=== PATIENT | male | born 1970 | race Caucasian/White ===

== ENCOUNTER 2023-08-22 13:46 | Observation (INO) ==
[~2023-08-22 13:46] MED LIST: Patient's HEIGHT &/or WEIGHT Needed STA
--- NOTE | 2023-08-22 13:53 | ED Triage Note ---
Date of Service August 22, 2023 Provider in Triage Author: Tejal Steele History of Present Illness This patient was briefly evaluated while in triage. An abbreviated physical exam was performed. This patient is a 53-year-old Male who presents to the ED for evaluation of chest pain, feeling shaky and weak. Took 2 baby aspirin today. Had a heart attack a year ago and got one stent. Takes plavix also. Chest pain started at about 11:30 am while exerting himself helping someone move. Pain lasted about one hour and relieved with aspirin. Did not take nitro. States this feels similar to when he had his last heart attack. Physical Exam CONSTITUTIONAL: No acute distress. Well appearing. RESPIRATORY: Clear to auscultation bilaterally. Equal expansion bilaterally. CARDIOVASCULAR: Regular rate and rhythm with no murmurs, rubs or gallops. Normal peripheral perfusion. No peripheral edema. GASTROINTESTINAL: Soft, nontender. NEUROLOGIC: Alert and oriented X 4 with normal affect. EKG reviewed in protocols room, no STEMI at this time and he currently denies chest pain. Initial orders for labs and / or imaging were placed and patient was taken directly to a room. Please see further documentation for the full ED course.
[2023-08-22] MEDS: ASPIRIN CHEW 324 MG PO STA (14:12)
[2023-08-22 14:25] LABS: Basophils # (auto) 0.03 K/uL (0.00-0.20); Basophils % (auto) 0.3 %; Eosinophils # (auto) 0.11 K/uL (0.00-0.50); Eosinophils % (auto) 1.3 %; Hemoglobin 15.3 g/dl (14.0-18.0); Immature Granulocytes # (auto) 0.02 K/uL (0.01-0.20); Immature Granulocytes % (auto) 0.2 %; Lymphocytes # (auto) 1.73 K/uL (1.20-3.40); Lymphocytes % (auto) 19.7 %; Mean Corpuscular Hemoglobin 30.4 pg (25.0-34.0); Mean Corpuscular Volume 89.3 fL (80.0-100.0); Mean Platelet Volume 10.5 fL (9.4-12.4); Monocytes # (auto) 0.65 K/uL (0.11-0.59); Monocytes % (auto) 7.4 %; Neutrophils # (auto) 6.22 K/uL (1.40-6.50); Neutrophils % (auto) 71.1 %; Platelet Count 215 K/uL (130-400); RDW Coefficient of Variation 12.5 % (11.5-14.5); RDW Standard Deviation 41.1 fL (36.4-46.3); Red Blood Count 5.04 M/uL (4.70-6.10); White Blood Count 8.76 K/ul (4.8-10.8)
--- NOTE | 2023-08-22 14:29 | Emergency Department Note ---
History of Present Illness General Chief Complaint: Cardiac Assessment Stated Complaint: WEAK, CARDIAC ASS, PREVIOUS HEART ATTACK Time Seen by Provider: 08/22/23 14:09 History of Present Illness Provider Complaint: chest pain Time: 11:30 Duration: intermittent, improved and now resolved Onset: during exertion (While moving) Pain Location: substernal Pain Radiation: RUE and LUE Quality: + tightness, + aching, + sharp and + dull Relieved By: + rest Exacerbated By: + exertion Context: no recent illness, no recent surgery, no recent travel, no trauma/injury, no new medications or no history of DVT/PE Associated symptoms: + dyspnea; no nausea, no vomiting, no diaphoresis, no syncope, no palpitations, no fever, no cough or no leg swelling Allergies Allergy/AdvReac Type Severity Reaction Status Date / Time No Known Allergies Allergy Unverified 08/22/23 13:50 Past Med/Surg History Problem List (Updated 08/22/23 @ 16:36 by Porfirio Connolly MD) Chest pain (Acute) Medical History (Updated 08/22/23 @ 16:36 by Porfirio Connolly MD) CAD (coronary artery disease) Social History Smoking Status: Unknown if ever smoked Preferred Language: Ugandan Feels Safe at Home: Yes Physical Exam Vital Signs Vital Signs - 24 hr 08/22/23 13:50 08/22/23 14:21 08/22/23 14:30 Temperature 36.4 C L Temperature Source Temporal Artery Scan Pulse Rate 65 67 57 L Pulse Rate from SpO2 Sensor 59 L Pulse Rhythm Regular Pulse Strength Normal Respiratory Rate 18 18 Respiratory Effort / Characteristics Non-Labored Spontaneous Respiratory Depth Normal Respiratory Pattern Regular Blood Pressure 132/87 Blood Pressure Mean 102 Blood Pressure Position Sitting Pulse Oximetry 100 98 Oxygen Delivery Method Room Air Sepsis Recent Fever Within 48 Hours No Sepsis New/Unexplained Change in Mental Status No Sepsis Action Taken by Nursing No Action Required 08/22/23 15:00 Temperature Temperature Source Pulse Rate 61 Pulse Rate from SpO2 Sensor 62 Pulse Rhythm Pulse Strength Respiratory Rate 23 Respiratory Effort / Characteristics Respiratory Depth Respiratory Pattern Blood Pressure Blood Pressure Mean Blood Pressure Position Pulse Oximetry 98 Oxygen Delivery Method Sepsis Recent Fever Within 48 Hours Sepsis New/Unexplained Change in Mental Status Sepsis Action Taken by Nursing Physical Exam GENERAL: oriented to person, place, and time. appears well-developed and well- nourished. HENT: Exam performed. - Head: Normocephalic and atraumatic. EYES: Conjunctivae and EOM are normal. Right eye exhibits no discharge. Left eye exhibits no discharge. No scleral icterus. NECK: Normal range of motion. Neck supple. No JVD present. CV: Normal rate, regular rhythm, normal heart sounds and intact distal pulses. There is no peripheral edema. Palpable radial pulses bue. PULM/CHEST: Effort normal and breath sounds normal. No respiratory distress. No stridor. no wheezes. no rales. ABD: The abdomen is soft. There is no tenderness. NEURO: Motor and sensation grossly intact. SKIN: Skin is warm and dry. He is not diaphoretic. PSYCH: normal mood and affect. Behavior is normal. Judgment and thought content normal. Course Course 1409: The patient was evaluated in room C11. A complete history and physical exam was performed Cardiac monitoring: An order was placed for continuous cardiac monitoring. The monitor shows a rate of 60 with sinus rhythm interpreted by me 1636: Vital signs stable. Labs and imaging within normal limits including negative EKG chest x-ray D-dimer and troponin. Patient was offered inpatient observation versus delta troponin and if negative follow-up. After discussion with his , the patient and elected for inpatient observation for chest pain rule out ACS. [facility]. Administered Medications Discontinued Medications Aspirin (Aspirin Chew 324 Mg) 162 mg PO NOW STA Stop: 08/22/23 13:56 Last Admin: 08/22/23 14:12 Dose: 162 mg Documented By: OAC Medical Decision Making Laboratory Data Attestation: I reviewed the patient's lab results. 08/22/23 14:00 08/22/23 14:00 Labs: Lab Results 08/22/23 Range/Units 14:00 WBC 8.76 (4.8-10.8) K/ul RBC 5.04 (4.70-6.10) M/uL Hgb 15.3 (14.0-18.0) g/dl Hct 45.0 (42.0-52.0) % MCV 89.3 (80.0-100.0) fL MCH 30.4 (25.0-34.0) pg MCHC 34.0 (32.0-36.0) g/dL RDW Std Deviation 41.1 (36.4-46.3) fL RDW Coeff of Elizabet 12.5 (11.5-14.5) % Plt Count 215 (130-400) K/uL MPV 10.5 (9.4-12.4) fL Immature Gran % (Auto) 0.2 % Neut % (Auto) 71.1 % Lymph % (Auto) 19.7 % Eddy % (Auto) 7.4 % Eos % (Auto) 1.3 % Baso % (Auto) 0.3 % Neut # (Auto) 6.22 (1.40-6.50) K/uL Lymph # (Auto) 1.73 (1.20-3.40) K/uL Eddy # (Auto) 0.65 H (0.11-0.59) K/uL Eos # (Auto) 0.11 (0.00-0.50) K/uL Baso # (Auto) 0.03 (0.00-0.20) K/uL Immature Gran # (Auto) 0.02 (0.01-0.20) K/uL PT 10.8 (9.0-12.0) Seconds INR 1.0 (0.9-1.1) APTT 27 (21-31) Seconds PTT Ratio 1.0 D-Dimer < 190 (0-500) ug/L FEU Sodium 130 L (136-145) mmol/L Potassium 4.0 (3.5-5.1) mmol/L Chloride 98 (98-107) mmol/L Carbon Dioxide 26 (21-32) mmol/L Anion Gap 6 (3-11) BUN 18 (6-23) mg/dl Creatinine 1.04 (0.6-1.4) mg/dl Est Cr Clr Drug Dosing Not Reportable Est GFR ( Amer) 95.2 ml/min Est GFR (Non-Af Amer) 82.2 ml/min BUN/Creatinine Ratio 17.3 (10-20) Glucose 95 (70-99(Fasting)) mg/dl Calcium 8.9 (8.6-10.3) mg/dl Total Bilirubin 0.7 (0.2-1.0) mg/dl AST 18 (13-39) U/L ALT 22 (7-52) U/L Alkaline Phosphatase 71 (34-104) U/L Troponin I High Sens 3.7 (0-20) pg/ml Total Protein 7.3 (6.0-8.3) gm/dl Albumin 4.5 (3.4-5.0) gm/dl Globulin 2.8 (2.5-4.0) gm/dl Albumin/Globulin Ratio 1.6 (0.9-2) Lipase 100 H (11-82) U/L Imaging Data Chest x-ray: Attestation: I personally reviewed and interpreted this imaging study as follows: My impression: Chest x-ray negative. Airway clear. No pneumothorax. No consolidation. No cardiomegaly or cephalization.. No free air under the diaphragm. No fractures of the skeletal structures. ECG Data Attestation: I personally reviewed and interpreted this ECG as follows: Indication: chest pain Rate (beats per minute): 60 Rhythm: normal sinus Findings: no ST depression, no ST elevation or no prolonged QT MDM Narrative 1409: The patient was evaluated in room C11. A complete history and physical exam was performed Cardiac monitoring: An order was placed for continuous cardiac monitoring. The monitor shows a rate of 60 with sinus rhythm interpreted by me 1636: Vital signs stable. Labs and imaging within normal limits including negative EKG chest x-ray D-dimer and troponin. Patient was offered inpatient observation versus delta troponin and if negative follow-up. After discussion with his , the patient and elected for inpatient observation for chest pain rule out ACS. Patient will be admitted to the [facility] hospitalist team. Impression & Plan Chest pain Discharge Plan Visit Data Chief Complaint: Cardiac Assessment Stated Complaint: WEAK, CARDIAC ASS, PREVIOUS HEART ATTACK ED Provider: Porfirio Connolly Discharge Problem: Chest pain Patient Disposition: Being Evaluated by Hospitalist Forms Stand Alone Forms: [facility] Referrals Referrals: PCP,NO [Primary Care Provider] - Discharge Problem: Chest pain Qualifiers: Chest pain type: unspecified Qualified Code(s): R07.9 - Chest pain, unspecified
[2023-08-22 14:37] LABS: Alanine Aminotransferase 22 U/L (7-52); Albumin Globulin Ratio 1.6 (0.9-2); Albumin Level 4.5 gm/dl (3.4-5.0); Alkaline Phosphatase 71 U/L (34-104); Anion Gap 6 (3-11); Aspartate Aminotransferase 18 U/L (13-39); BUN Creatinine Ratio 17.3 (10-20); Bilirubin,Total 0.7 mg/dl (0.2-1.0); Blood Urea Nitrogen 18 mg/dl (6-23); Calcium 8.9 mg/dl (8.6-10.3); Carbon Dioxide 26 mmol/L (21-32); Chloride 98 mmol/L (98-107); Est GFR (African American) 95.2 ml/min; Est GFR (Non-African American) 82.2 ml/min; Globulin 2.8 gm/dl (2.5-4.0); Glucose 95 mg/dl (70-99(Fasting)); Lipase 100 U/L (11-82); Sodium 130 mmol/L (136-145); Total Protein 7.3 gm/dl (6.0-8.3)
--- NOTE | 2023-08-22 14:37 | XRay Report ---
XR chest 1V portable HISTORY: 53 years-old Male Chest pain, nonspecific COMPARISON: None TECHNIQUE: AP view the chest FINDINGS: The mediastinal and hilar silhouettes are within normal limits. Lungs are clear. No pneumothorax or p leural effusion. Bones are grossly intact. IMPRESSION: No acute process. ACT 112: Negative or not required by law. The above report was generated using voice recognition software. It may contain grammatical, syntax o r spelling errors. Electronically signed by: Dennis Kirk M.D. 08/22/2023 2:36 PM
[2023-08-22 14:44] LABS: Troponin I High Sensitivity 3.7 pg/ml (0-20)
[2023-08-22 14:52] LABS: D Dimer < 190 ug/L FEU (0-500); Partial Thromboplastin Time 27 Seconds (21-31); Prothrombin Time 10.8 Seconds (9.0-12.0)
--- NOTE | 2023-08-22 17:18 | History & Physical Report ---
Date of Service August 22, 2023 Assessment & Plan (1) Chest pain: Plan: Admit to med/telemetry Currently stable, non-toxic appearing, currently pain-free at the time of exam Presented to the ED today for acute onset of left-sided chest pain after he started to help his friend move boxes earlier today Each episode of chest pain last only a few seconds, but recurred multiple times prior to arrival and at least 2 times since arrival Patient is status post AL with CARMELINA placement x 1 at outside hospital in September 2022 He reports compliance with all cardiac medications, however, he does increase the amounts of daily cigarette use from 1/2 PPD to 1 PPD since his AL and also drinks approximately 4 to 5 cans of beer a day Initial high-sensitivity troponin was within normal limits, no acute ST segment or T wave changes on EKG on arrival and repeat after an episode of chest pain D-dimer is within normal limits as well Pain was not exacerbated when laying the patient flat during my exam We will admit the patient for ongoing monitoring/observation, will obtain repeat 2-hour high-sensitivity troponin now, continue to monitor on telemetry, continue to trend high-sensitivity troponin every 6 hours overnight If patient has another episode of chest pain we will add nitroglycerin paste Will consult cardiology and make patient n.p.o. at midnight in case heart cath is needed Continue patient's aspirin, statin, metoprolol, Plavix, Jardiance, and lisinopril Patient was given an additional 162 mg aspirin on arrival to complete a full dose SQ Lovenox for DVT prophylaxis Heart healthy diet with 1800 mL fluid restriction until midnight then n.p.o. A.m. CBC, CMP, mag, PT/INR (2) Hyponatremia: Plan: Sodium of 130 today, we do not have previous levels as patient normally seeks his medical care in the [facility] Patient appears euvolemic on exam, LFTs and renal function are within normal limits His hyponatremia is most likely due to beer Potomania and spironolactone use Will start fluid restriction of 1800 mL for now Monitor a.m. renal function and electrolytes Continue stress importance of reducing his alcohol intake (3) Alcohol use: Plan: Patient reports drinking approximately 4 to 5 cans of beer on an almost daily basis Last drink was last night before bed Denies a previous history of alcohol withdrawal symptoms when he is not drinking, he is without signs or symptoms of alcohol withdrawal at this time Continue to monitor for signs of alcohol withdrawal while admitted Will start daily folic acid and Thiamine (4) CAD (coronary artery disease): Plan: See chest pain (5) HTN (hypertension): Plan: Stable Will continue home lisinopril Holding home spironolactone at this time with hyponatremia as patient is eu volemic on exam (6) Tobacco abuse: Plan: Patient is smoking approximately 1 pack of cigarettes daily since his AL last year States that life stressors caused him to increase his amount of smoking Patient expresses interest in quitting, declines need for nicotine patches or gum at this time Continue moderate importance of cessation Plan Patient was discussed with Dr. Crowley at the time of the admission History of Present Illness Chief Complaint: Chest pain Primary Care Provider: NO PCP Braeden is a 53-year-old female with a past medical history significant for coronary artery disease status post myocardial infarction requiring 1 CARMELINA stent placement approximately 1 years ago, hypertension who presented to the [facility] ED on 08/22/2023 with complaints of approximate 1 hour of chest pain at approximately 1:30 AM while exerting himself helping a friend move. Patient took 2 baby aspirin prior to arrival. Patient reported to the ED staff that this discomfort felt similar to his last AL. He remained stable in the ED. Labs were significant for a sodium of 130, lipase of 100, high-sensitivity troponin within normal limits at 3.7, D-dimer within normal limits. Chest x-ray was read as negative for acute findings. EKG shows sinus bradycardia without acute ST segment or T wave changes and possible anterior infarct cited on or before today's EKG. Prior to admission the patient was given 162 mg of aspirin and 0.4 mg sublingual nitroglycerin. Patient was sitting in bed in no acute distress at the time of exam. He confirms that he had his AL in September 2022. States that he had 1 CARMELINA placed at [facility], he is unsure of the location of his stent. States that he was helping a friend move earlier today. Initially move multiple boxes and then started develop episodes of dull/aching pain left of his sternal border. States that the episodes only last a few seconds each time, does not believe that they are associated with movement. Denies radiation of the pain to the neck, jaw, back, upper extremities. He took all of his a.m. medications including his baby aspirin, Plavix, Jardiance, lisinopril, metoprolol succinate, and spironolactone. Shortly after his chest pain started he took another baby aspirin. Since arrival to the hospital his chest pain is recurred at rest at least 1-2 times, but they last for only a few seconds. He does feel as though this pain is similar to his previous chest pain which required CARMELINA placement last year. When asked, he states that he is smoking close to 1 pack of cigarettes daily, this is actually increased compared to 1/2 packs/day prior to his AL last year. He usually has 4 to 5 cans of beer each night, with his last drink being last night. Denies a previous history of withdrawal symptoms when he stops drinking. He is a full code and wants his significant other, Esthela Vinson, and his sister to make medical decisions for him if he cannot make them himself. Please refer to Dr. Bentley's attestation for any changes to the treatment plan Allergies Allergy/AdvReac Type Severity Reaction Status Date / Time No Known Allergies Allergy Unverified 08/22/23 13:50 Home Medications Medication Instructions Recorded Confirmed Type aspirin 81 mg chewable tablet 81 mg PO QA 08/22/23 08/22/23 History atorvastatin 80 mg tablet 80 mg PO HS 08/22/23 08/22/23 History clopidogrel 75 mg tablet 75 mg PO QA 08/22/23 08/22/23 History empagliflozin 10 mg tablet 10 mg PO QA 08/22/23 08/22/23 History (Jardiance) lisinopril 2.5 mg tablet 2.5 mg PO QA 08/22/23 08/22/23 History metoprolol succinate 25 mg 25 mg PO QAM 08/22/23 08/22/23 History tablet,extended release 24 hr spironolactone 25 mg tablet 25 mg PO QAM 08/22/23 08/22/23 History Past Med/Surg History Problem List (Updated 08/22/23 @ 17:59 by Aravind Mosley PA-C) Hyponatremia HTN (hypertension) Chest pain (Acute) Medical History (Updated 08/22/23 @ 17:59 by Aravind Mosley PA-C) Alcohol use Tobacco abuse CAD (coronary artery disease) Surgical History (Updated 08/22/23 @ 17:59 by Aravind Mosley PA-C) Hx of heart artery stent Social History Smoking Status: Current every day smoker Tobacco Type: Cigarettes Cigarettes Per Day: 1 pack; Do You Dip or Chew Tobacco: No; Hx Alcohol Use: Yes Alcohol type: beer Hx Substance Use: No Preferred Language: Yi Beliefs That Will Affect Care: None Current Living Situation: Significant Other Other Information That Helps Us Care for You: No Feels Safe at Home: Yes Safety Concerns: Feels Safe At This Time Assistive Devices: Glasses Physical Exam Physical Exam: Physical Exam: General: In no acute distress, stated age, well-nourished, good hygiene HEENT: Normocephalic, atraumatic, no scleral icterus, pupils around round, symmetrical, and reactive to light, moist mucus membranes, trachea midline, no thyromegaly Chest/Pulm: No respiratory distress, symmetrical chest expansion, clear breath sounds throughout Cardiac: RRR, no murmurs noted Abdomen: Negative for ascites and bruising, normoactive bowel sounds, soft, non-tender to palpation throughout Musculoskeletal: Symmetrical and without signs of acute trauma, upper and lower extremities with full ROM, no atrophy, spasticity, or flaccidity >No reproducible pain on palpation of the chest Extremities: Radial, dorsalis pedis, and posterior tibial pulses are intact and symmetrical, no edema noted in the BL LE's Skin: Warm, dry, no rashes , lesions, or scars noted Neuro: Alert and oriented to person, place, month, year, and president, no focal defects, no tremors noted Psych: No acute distress, calm and cooperative during the exam Results & Data Results & Data Vital Signs (Past 12 Hours) Vital Signs Temp Pulse Resp BP Pulse Ox O2 Del Method 08/22/23 15:00 61 23 98 08/22/23 14:30 57 L 18 98 08/22/23 14:21 67 08/22/23 13:50 36.4 C L 65 18 132/87 100 Room Air Laboratory Results Abnormal lab results 08/22/23 Range/Units 14:00 Burnett # (Auto) 0.65 H (0.11-0.59) K/uL Sodium 130 L (136-145) mmol/L Lipase 100 H (11-82) U/L Diagnostic Findings Chest X-Ray 08/22/23 13:55 XR chest 1V portable HISTORY: 53 years-old Male Chest pain, nonspecific COMPARISON: None TECHNIQUE: AP view the chest FINDINGS: The mediastinal and hilar silhouettes are within normal limits. Lungs are clear. No pneumothorax or pleural effusion. Bones are grossly intact. IMPRESSION: No acute process. ACT 112: Negative or not required by law. The above report was generated using voice recognition software. It may contain grammatical, syntax or spelling errors. Electronically signed by: Dennis Kirk M.D. 08/22/2023 2:36 PM ECG Additional Comments: Sinus bradycardia Cannot rule out Anterior infarct (cited on or before 22-AUG-2023) Abnormal ECG When compared with ECG of 22-AUG-2023 13:55, (unconfirmed) No significant change was found Code Status & VTE Plan Code Status Full code VTE Prophylaxis Plan VTE Prophylaxis will be ordered: Yes Supervising Physician Co-Signing Physician Notes I personally saw and examined the patient. I verified all combs points and agree with Aravind Mosley PA-C with the following exceptions and/or additions: 53 year old male with prior AL presents to the ER with chest pain that started today. No longer having chest pain in the ER. Mainly on exertion but also had some chest pain at rest. Feels like similar chest pain to his AL. Under Dr Hewitt in [place] but came here as he was in the area. O/E HS RRR, no murmurs, Chest CTAB, Abdo SNT A/P Chest pain - persisted at rest therefore concerning for stable angina. None currently. Will continue his usual medications and assess for recurrence. Consult cardiology to consider anti-anginals vs. invastice, non-invasive testing. PG Care Time/CCT Total # of Minutes Spent Total Time Spent with Patient: Total time spent is greater than 50% in coordination of care (as documented) at patient's floor/unit and/or counseling patient: [place] [address] INT INP/OBS CARE 3/75MIN Patient Type New Medical Decision Making High Complexity Diagnoses Chest pain R07.9 Chest pain type: unspecified Hyponatremia E87.1 Alcohol use Z78.9 CAD (coronary artery disease) I25.10 HTN (hypertension) I10 Tobacco abuse Z72.0 (1) Chest pain Chest pain type: unspecified Qualified Code(s): R07.9 - Chest pain, unspecified
[2023-08-22] MEDS: ACETAMINOPHEN 500 MG TAB PO STA (18:23)
[2023-08-22] MEDS: FAMOTIDINE 20 MG TAB PO ONE (18:23)
[2023-08-22] MEDS: PANTOprazole 40 MG TAB PO STA (18:23)
[2023-08-22] MEDS: FOLIC ACID 1 MG TAB PO SCH (18:44)
[2023-08-22] MEDS: THIAMINE HCL 100 MG TAB PO SCH (18:44)
[2023-08-22] MEDS: NITROGLYCERIN SL 0.4 MG/TAB TAB SL STA (18:45)
[2023-08-22 19:10] LABS: Magnesium 2.1 mg/dl (1.7-2.4)
[2023-08-22 19:17] LABS: Troponin I High Sensitivity 4.7 pg/ml (0-20)
[2023-08-22] MEDS: ATORVASTATIN 40 MG TAB PO SCH (21:17)
[2023-08-22] MEDS: ENOXAPARIN INJ 40 MG/0.4 ML SYR SQ SCH (21:17)
[2023-08-22] MEDS ORDERED: NICOTINE POLACRILEX 2 MG GUM MT PRN (21:19)
[2023-08-23 07:30] LABS: Basophils # (auto) 0.04 K/uL (0.00-0.20); Basophils % (auto) 0.6 %; Eosinophils # (auto) 0.24 K/uL (0.00-0.50); Eosinophils % (auto) 3.7 %; Hematocrit (blood only) 41.2 % (42.0-52.0); Hemoglobin 13.9 g/dl (14.0-18.0); Immature Granulocytes # (auto) 0.02 K/uL (0.01-0.20); Immature Granulocytes % (auto) 0.3 %; Lymphocytes # (auto) 1.27 K/uL (1.20-3.40); Lymphocytes % (auto) 19.5 %; Mean Corpuscular Hemoglobin 30.2 pg (25.0-34.0); Mean Corpuscular Hgb Conc 33.7 g/dL (32.0-36.0); Mean Corpuscular Volume 89.6 fL (80.0-100.0); Mean Platelet Volume 10.5 fL (9.4-12.4); Monocytes # (auto) 0.52 K/uL (0.11-0.59); Neutrophils # (auto) 4.43 K/uL (1.40-6.50); Neutrophils % (auto) 67.9 %; Platelet Count 181 K/uL (130-400); RDW Coefficient of Variation 12.6 % (11.5-14.5); RDW Standard Deviation 41.3 fL (36.4-46.3); White Blood Count 6.52 K/ul (4.8-10.8)
[2023-08-23] MEDS: ASPIRIN 81 MG CHEW PO SCH (07:36)
[2023-08-23] MEDS: lisinopril 2.5 MG TAB PO SCH (07:36)
[2023-08-23] MEDS: EMPAGLIFLOZIN 10 MG TAB PO SCH (07:36)
[2023-08-23] MEDS: METOPROLOL SUCC 25MG EXT REL TAB PO SCH (07:37)
[2023-08-23 08:06] LABS: Albumin Globulin Ratio 1.6 (0.9-2); Albumin Level 3.9 gm/dl (3.4-5.0); BUN Creatinine Ratio 16.5 (10-20); Bilirubin,Total 0.4 mg/dl (0.2-1.0); Calcium 8.9 mg/dl (8.6-10.3); Creatinine Clr Calc Pharmacy 77.5 ml/min; Est GFR (African American) 103.6 ml/min; Est GFR (Non-African American) 89.4 ml/min; Globulin 2.5 gm/dl (2.5-4.0); Potassium 4.4 mmol/L (3.5-5.1); Prothrombin Time 10.6 Seconds (9.0-12.0); Total Protein 6.4 gm/dl (6.0-8.3)
[2023-08-23 08:26] LABS: Magnesium 2.2 mg/dl (1.7-2.4)
[2023-08-23] MEDS: CLOPIDOGREL BISULFATE 75 MG TAB PO SCH (12:58)
--- NOTE | 2023-08-23 13:19 | Cardiology Consultation ---
Date of Consultation August 23, 2023 Assessment & Plan (1) Chest pain: -very atypical symptoms. -no acute EKG changes. -normal high sensitivity troponin x4. -would ambulate in the hallways. -if no exertional angina pectoris, which discharged home. -consider outpatient stress test per follow-up with Dr. Hewitt. (2) CAD (coronary artery disease): -had cardiac catheterization and CARMELINA performed in September 2022. -details unknown. (3) HTN (hypertension): -adequate control current regimen. (4) Hypercholesterolemia: -continue atorvastatin at 80 mg q.h.s. (5) Hx of heart artery stent: -performed in September 2022. -details unknown. -follow-up with Dr. Hewitt. History of Present Illness Attending Physician: Mk Guo History of Present Illness Mr. Blue is a 53-year-old male admitted yesterday with an atypical chest pain syndrome. This consultation was obtained to assist in his cardiac management. Of note, patient typically follows with Dr. Hewitt from [place]. The patient was in his usual state of health until yesterday afternoon when he developed a chest pain syndrome while moving boxes. The patient described a sharp, stabbing discomfort in the left chest which only lasted for seconds. There were no other associated symptoms such as shortness of breath, nausea, vomiting, or diaphoresis. On occasion, he noted the same discomfort in the right chest. He became concerned and presented to the emergency room for further care. On arrival here, patient had no acute changes and a normal high sensitivity troponin of 3.7. His discomfort eventually resolved spontaneously. Total duration of the intermittent discomfort was 1-2 hours. The patient does carry history of coronary artery disease having undergone an intracoronary stent back in September 2022. Results of back cardiac catheterization are not available for our review. Currently, patient is resting comfortably in bed without complaints. He is anxious to have something to eat and to be discharged. Past medical and surgical history 1. Coronary artery disease-see above 2. Intracoronary artery CARMELINA-September 2022 3. Hypertension 4. Hypercholesterolemia Social history Single, lives with significant other Works in a [employer] company Smokes 1 pack of cigarettes daily Drinks 4-5 beers daily Family history Father is 90 and lives in a long-term Mother had bypass surgery performed in her 50s. Allergies Allergy/AdvReac Type Severity Reaction Status Date / Time No Known Allergies Allergy Unverified 08/22/23 13:50 Home Medications Medication Instructions Recorded Confirmed Type aspirin 81 mg chewable tablet 81 mg PO QAM 08/22/23 08/22/23 History atorvastatin 80 mg tablet 80 mg PO HS 08/22/23 08/22/23 History clopidogrel 75 mg tablet 75 mg PO QAM 08/22/23 08/22/23 History empagliflozin 10 mg tablet 10 mg PO QAM 08/22/23 08/22/23 History (Jardiance) lisinopril 2.5 mg tablet 2.5 mg PO QAM 08/22/23 08/22/23 History metoprolol succinate 25 mg 25 mg PO QAM 08/22/23 08/22/23 History tablet,extended release 24 hr spironolactone 25 mg tablet 25 mg PO QAM 08/22/23 08/22/23 History Patient History Medical History (Updated 08/23/23 @ 13:14 by Desean Kay MD) Alcohol use Tobacco abuse Social History Smoking Status: Current every day smoker Tobacco Type: Cigarettes Cigarettes Per Day: 1 pack; Do You Dip or Chew Tobacco: No; Hx Alcohol Use: Yes Alcohol type: beer Hx Substance Use: No Preferred Language: Kosovan Beliefs That Will Affect Care: None Current Living Situation: Significant Other Other Information That Helps Us Care for You: No Feels Safe at Home: Yes Safety Concerns: Feels Safe At This Time Assistive Devices: Glasses Physical Exam Physical Exam: In general this is a well-developed well-nourished white male in no acute distress. HEENT exam is negative. Neck is supple with full carotid upstrokes. There are no carotid bruits. Jugular venous pressure is flat at 90. There is no thyromegaly. Cardiovascular exam reveals a regular rhythm with a normal S1 and S2. No S3, S4, or murmurs are noted. Lungs are clear without rales, rhonchi, or wheezes. Abdomen is soft and nontender without bruits. Extremities reveal intact radial artery and posterior tibial pulses bilaterally. There is no peripheral edema. Results & Data Vital Signs (Past 12 Hours) Vital Signs Temp Pulse Pulse Resp BP BP Pulse Ox 08/23/23 11:39 36.5 C 56 L 18 97/60 L 96 08/23/23 07:47 36.8 C 49 L 18 93/59 L 96 08/23/23 07:06 53 L 08/23/23 03:33 36.6 C 60 16 116/75 98 O2 Del Method 08/23/23 11:39 Room Air 08/23/23 07:47 Room Air 08/23/23 07:06 08/23/23 03:33 Room Air Laboratory Results CBC notes hemoglobin 13.9, hematocrit 41.2, white count 6.5, platelet count [id number]. Electrolytes note a sodium of 137, potassium 4.4, chloride 104, bicarb 29, BUN 16, creatinine 0.97, and glucose of 112. Initial high sensitivity troponin was 3.7 with follow-up values of 4.7, 3.9, and 3.9. Diagnostic Findings EKG notes sinus rhythm with poor R-wave progression across the anterior precordium. Chest x-ray shows no acute disease. PG Care Time/CCT Total # of Minutes Spent Total Time Spent with Patient: Total time spent is greater than 50% in coordination of care (as documented) at patient's floor/unit and/or counseling patient: Coding Level of Care Code 75859 IN/OBS CONSULT LVL 4,60M Diagnoses Chest pain R07.9 Chest pain type: unspecified CAD (coronary artery disease) I25.10 HTN (hypertension) I10 Hypercholesterolemia E78.00 Hx of heart artery stent Z95.5 (1) Chest pain Chest pain type: unspecified Qualified Code(s): R07.9 - Chest pain, unspecified
--- NOTE | 2023-08-23 13:45 | Discharge Summary ---
Date of Service August 23, 2023 Admission HPI Per Admitting Provider Braeden is a 53-year-old female with a past medical history significant for coronary artery disease status post myocardial infarction requiring 1 CARMELINA stent placement approximately 1 years ago, hypertension who presented to the [facility] ED on 08/22/2023 with complaints of approximate 1 hour of chest pain at approximately 1:30 AM while exerting himself helping a friend move. Patient took 2 baby aspirin prior to arrival. Patient reported to the ED staff that this discomfort felt similar to his last ND. He remained stable in the ED. Labs were significant for a sodium of 130, lipase of 100, high- sensitivity troponin within normal limits at 3.7, D-dimer within normal limits. Chest x-ray was read as negative for acute findings. EKG shows sinus bradycardia without acute ST segment or T wave changes and possible anterior infarct cited on or before today's EKG. Prior to admission the patient was given 162 mg of aspirin and 0.4 mg sublingual nitroglycerin. Patient was sitting in bed in no acute distress at the time of exam. He confirms that he had his ND in September 2022. States that he had [address] [facility], he is unsure of the location of his stent. States that he was helping a friend move earlier today. Initially move multiple boxes and then started develop episodes of dull/aching pain left of his sternal border. States that the episodes only last a few seconds each time, does not believe that they are associated with movement. Denies radiation of the pain to the neck, jaw, back, upper extremities. He took all of his a.m. medications including his baby aspirin, Plavix, Jardiance, lisinopril, metoprolol succinate, and spironolactone. Shortly after his chest pain started he took another baby aspirin. Since arrival to the hospital his chest pain is recurred at rest at least 1-2 times, but they last for only a few seconds. He does feel as though this pain is similar to his previous chest pain which required CARMELINA placement last year. When asked, he states that he is smoking close to 1 pack of cigarettes daily, this is actually increased compared to 1/2 packs/day prior to his ND last year. He usually has 4 to 5 cans of beer each night, with his last drink being last night. Denies a previous history of withdrawal symptoms when he stops drinking. He is a full code and wants his significant other, Esthela Vinson, and his sister to make medical decisions for him if he cannot make them himself. Please refer to Dr. Bentley's attestation for any changes to the treatment plan Principal Diagnosis chest pain Discharge Exam General: In no acute distress, stated age, well-nourished, good hygiene HEENT: Normocephalic, atraumatic Chest/Pulm: clear breath sounds throughout Cardiac: RRR, no murmurs noted Abdomen: normoactive bowel sounds, soft, non-tender to palpation throughout Extremities: Radial, dorsalis pedis, and posterior tibial pulses are intact Skin: Warm, dry, no rashes , lesions, or scars noted Neuro: Alert and oriented to person, place, month, year, and president Discharge Data Allergies Allergy/AdvReac Type Severity Reaction Status Date / Time No Known Allergies Allergy Unverified 08/22/23 13:50 Consultations 08/22/23 16:29 ED Decision to Admit Stat 08/22/23 17:44 Consult Cardiology Routine Hospital Course (1) Chest pain: Admit to med/telemetry Currently stable, non-toxic appearing, currently pain-free at the time of exam Presented to the ED today for acute onset of left-sided chest pain after he started to help his friend move boxes earlier today Each episode of chest pain last only a few seconds, but recurred multiple times prior to arrival and at least 2 times since arrival Patient is status post ND with CARMELINA placement x 1 at outside hospital in September 2022 consulted cardiology: appreciate input -very atypical symptoms. -no acute EKG changes. -normal high sensitivity troponin x4. -would ambulate in the hallways. -if no exertional angina pectoris, which discharged home. -consider outpatient stress test per follow-up with Dr. Hewitt. (2) Hyponatremia: Sodium of 130 today, we do not have previous levels as patient normally seeks his medical care in the [facility] Patient appears euvolemic on exam, LFTs and renal function are within normal limits His hyponatremia is most likely due to beer Potomania and spironolactone use sodium improved to 137 (3) Alcohol use: Patient reports drinking approximately 4 to 5 cans of beer on an almost daily basis Last drink was last night before bed Denies a previous history of alcohol withdrawal symptoms when he is not drinking, he is without signs or symptoms of alcohol withdrawal at this time (4) CAD (coronary artery disease): See chest pain (5) HTN (hypertension): Stable Will continue home lisinopril Holding home spironolactone at this time with hyponatremia as patient is euvolemic on exam will hold until followup with PCP (6) Tobacco abuse: Patient is smoking approximately 1 pack of cigarettes daily since his ND last year States that life stressors caused him to increase his amount of smoking Patient expresses interest in quitting, declines need for nicotine patches or gum at this time Continue moderate importance of cessation Total Time Total Time Spent Total Time Spent (In Minutes): 32 Discharge Plan Discharge Items Patient Disposition: Home - Self-Care Reason For Visit: CHEST PAIN Discharge Diagnosis: chest pain Activity: Resume your previous activity Non-emergency contact: Primary Care Provider Call non-emergency contact if: you have any medication questions Follow-up/Referrals: PCP,NO [Primary Care Provider] - Diet: Regular Addtl Attending Provider Instructions: You were seen for chest pain. Thankfully the fresh work wrapper layer evaulauted you and did not feel this to be heart related. We ruled out the life threatening diagnosis of chest pain, such as a heart attack. Will recommend you followup with your PCP and fresh work wrapper layer as an outpatient. Hold spironolactone until seen by PCP Pending Studies at Discharge: No Stand-Alone Forms: My [facility], Smoking Cessation Medications and DC Order Prescriptions: Continued aspirin 81 mg tablet,chewable 81 mg PO QAM metoprolol succinate 25 mg tablet extended release 24 hr 25 mg PO QAM lisinopril 2.5 mg tablet 2.5 mg PO QAM atorvastatin 80 mg tablet 80 mg PO HS Jardiance 10 mg tablet 10 mg PO QAM clopidogrel 75 mg tablet 75 mg PO QAM Held spironolactone 25 mg tablet 25 mg PO QAM Hold Instructions: Resume on 09/02/23. Discharge Orders: Discharge Order (Routine); Ordered 08/23/23 Ordered By: Mk Guo Admission Data Admit Date/Time: 08/22/23 17:44 Attending Provider: Mk Guo Admit Provider: Parker Crowley Primary Care Provider: PCP,NO Other Providers: Parker Crowley; Maurisio López Other Interventions: Discharge Summary Assessment (RN) Last Done: 08/23/23 13:45 Coding Level of Care Code 95981 INP/OBS DISCH >30 MIN Diagnoses Chest pain R07.9 Chest pain type: unspecified Hyponatremia E87.1 Alcohol use Z78.9 CAD (coronary artery disease) I25.10 HTN (hypertension) I10 Tobacco abuse Z72.0
--- NOTE | 2023-08-23 14:43 | Electrocardiogram Report ---
Test Reason : Blood Pressure : / mmHG Vent. Rate : 060 BPM Atrial Rate : 060 BPM P-R Int : 172 ms QRS Dur : 108 ms QT Int : 458 ms P-R-T Axes : 069 073 058 degrees QTc Int : 458 ms Normal sinus rhythm Poor R wave progression, consider anterior IA vs. lead placement vs. LVH Abnormal ECG No previous ECGs available Confirmed by Desean Kay ([id number]) on 08/23/2023 2:42:36 PM Referred By: REFERRED SELF Confirmed By:Desean Kay
--- NOTE | 2023-08-23 14:44 | Electrocardiogram Report ---
Test Reason : Blood Pressure : / mmHG Vent. Rate : 058 BPM Atrial Rate : 058 BPM P-R Int : 178 ms QRS Dur : 106 ms QT Int : 462 ms P-R-T Axes : 061 081 042 degrees QTc Int : 453 ms Sinus bradycardia Poor R wave progression, consider anterior CO vs. lead placement vs. LVH Abnormal ECG When compared with ECG of 22-AUG-2023 13:55, (unconfirmed) No significant change was found Confirmed by Desean Kay ([id number]) on 08/23/2023 2:44:00 PM Referred By: REFERRED SELF Confirmed By:Desean Kay
== END 2023-08-23 18:04 | disposition home or self-care (01) ==
LOC: ED 13:46 → INTOOBSV 17:44 → SUATTDRO 17:44 → 2N 17:44